=== PATIENT | female | born 1965 | race African-American/Black ===

== ENCOUNTER → 2017-08-19 | Outpatient (CLI) | payer OTHER ==
--- NOTE | 2017-08-20 09:05 | XCELERA REPORT ---
[address] [address] Lower Extremity Arterial Evaluation Name: LADONNA PEREZ Age: 52 yrs Gender: Female : 1965 Patient Status: Outpatient Patient Location: Study Date: 08/19/2017 12:57 PM Procedure: A color flow and duplex scan of the lower extremity arteries was performed bilaterally with velocity and waveform anaylsis. Ankle brachial indicies performed. Reason For Study: PVD Ordering Physician: CARLOZ VALENCIA Performed By: Kacy Ivy Measurements and Calculations Right Left CHHA PSV 231.3 111.3 cm/sec Prox PFA PSV -113.1 -119.4 cm/sec Prox SFA PSV -168.5 -118.8 cm/sec Mid SFA PSV -144.1 -113.1 cm/sec Dist SFA PSV -127.0 -124.5 cm/sec Prox Pop A PSV 48.4 55.2 cm/sec Dist ANTHONY PSV 44.6 47.5 cm/sec Dist PETROL T[employer]IVER PSV 23.2 48.3 cm/sec Valeriano Pedis PSV 38.0 33.2 cm/sec Right Side Arterial Evaluation Normal velocity and triphasic waveforms noted in the Common Femoral artery. Biphasic from the Popliteal to the infrageniculate vessels. 0-19% stenosis at the Popliteal artery. Ankle Brachial index is 1.04. Left Side Arterial Evaluation Normal velocity and triphasic waveforms noted from the Common Femoral artery to the Poplitea.. Biphasic in the infrageniculate vessels. 0-19% stenosis at the infrageniculate level. Ankle Brachial index is 1.04. Interpretation Summary Mild hemodynamically significant lesions in the bilateral lower extremities, on duplex imaging, at rest. : CARLOZ VALENCIA > Sancho Guillory
== END ==
LOC: SP 12:41
PROVIDERS: ATTEND Internal Medicine
DX: I73.9 Peripheral vascular disease, unspecified (principal)
CPT/HCPCS: 93925

== ENCOUNTER → 2018-04-24 | Outpatient (CLI) | payer OTHER ==
--- NOTE | 2018-04-24 18:25 | RADIOLOGY REPORT (SQ) ---
EXAM DESCRIPTION: MRI HEAD WITHOUT COMPLETED DATE/TIME: 04/24/2018 2:15 pm REASON FOR STUDY: UNSTEADINESS ON FEET R26.81 UNSTEADINESS ON FEET COMPARISON: None. TECHNIQUE: Multiplanar imaging includes non-contrasted T1, T2, FLAIR, and diffusion with ADC map seq uences. Detailed imaging in the posterior fossa. Images stored on PACS. LIMITATIONS: None. FINDINGS: ANATOMY: No anomalies. Normal vascular flow voids. Pituitary fossa normal. CSF SPACES: Normal in size and contour. No hemorrhage. CEREBRUM: Sulci and gyri normal in size and contour. Normal white matter signal on FLAIR imaging. No evidence of hemorrhage, mass, or extraaxial fluid collection. POSTERIOR FOSSA: No signal alteration. No hemorrhage. No edema, masses or mass effect. Internal romulo tory canals, cerebello-pontine angles, mastoids normal. DIFFUSION IMAGING: Negative for acute or sub-acute infarction. ORBITS: No masses. Globes normal. PARANASAL SINUSES: No fluid levels. Mucosa normal. OTHER: No other significant finding. IMPRESSION: NORMAL MRI OF THE BRAIN WITHOUT INTRAVENOUS GADOLINIUM CONTRAST. EVIDENCE OF ACUTE STROKE: NO. TECHNICAL DOCUMENTATION: JOB ID: [id number] [employer]- All Rights Reserved Reading location - IP/workstation name: [email or web address]
== END ==
LOC: RAD 13:35
PROVIDERS: ATTEND Internal Medicine
DX: R26.81 Unsteadiness on feet (principal)
CPT/HCPCS: 70551

== ENCOUNTER 2018-04-30 14:59 | Emergency (ER) | payer OTHER ==
[2018-04-30 15:17] VITALS: BP 110/65
[2018-04-30] MEDS ORDERED: AMOXICILLIN TRIHYDRATE 500 MG CAPSULE PO ONE (15:48)
--- NOTE | 2018-04-30 15:48 | ER Document Report ---
HPI - HPI Patient complains to provider of: sinus congestion Onset: Other - 2 months Onset/Duration: Persistent Quality of pain: Pressure Pain Level: 1 Context: Pt presents c/o sinus pressure and left ear pain. Patient states she frequently gets sinusitis and suspects the same today. Patient states since April 19 she has had daily episodes of dizziness off and on. Patient states she did see her primary doctor for this complaint and had an outpatient MRI which was normal. Patient was also given meclizine and states that this helped her vertigo symptoms. Patient does complain of continued congestion is worried she needs an antibiotic at this time. Associated Symptoms: Earache, Rhinnorhea, Sinus pain/drainage Exacerbated by: Denies Relieved by: Denies Similar symptoms previously: Yes Recently seen / treated by doctor: No - ROS ROS below otherwise negative: Yes Systems Reviewed and Negative: Yes All other systems reviewed and negative - CONSTITUTIONAL Constitutional: DENIES: Fever, Chills - EENT EENT: REPORTS: Ear Pain - Left ear, Nasal Drainage-Clear, Congestion. DENIES: Sore Throat, Eye problems - CARDIOVASCULAR Cardiovascular: DENIES: Chest pain - RESPIRATORY Respiratory: DENIES: Trouble Breathing, Coughing - GASTROINTESTINAL Gastrointestinal: DENIES: Abdominal Pain, Patient vomiting, Black / Bloody Stools - MUSCULOSKELETAL Musculoskeletal: DENIES: Back Pain, Neck Pain - DERM Skin Color: Normal Skin Problems: None Past Medical History - General Information source: Patient - Social History Smoking Status: Current Every Day Smoker Smoking Education Provided: Yes Frequency of alcohol use: None Drug Abuse: None Occupation: None Lives with: Family Family History: CAD, CVA, Hypertension Patient has suicidal ideation: No Patient has homicidal ideation: No - Past Medical History Cardiac Medical History: Reports: Hx Hypertension Pulmonary Medical History: Denies: Hx Asthma EENT Medical History: Reports: Other - Allergies Renal/ Medical History: Denies: Hx Peritoneal Dialysis Psychiatric Medical History: Reports: Hx Anxiety Surgical Hx: Negative - Immunizations Hx Diphtheria, Pertussis, Tetanus Vaccination: No Vertical Provider Document - CONSTITUTIONAL Agree With Documented VS: Yes Exam Limitations: No Limitations General Appearance: WD/WN, No Apparent Distress - INFECTION CONTROL TRAVEL OUTSIDE OF THE [place] IN LAST 30 DAYS: No - HEENT HEENT: Atraumatic, Normocephalic, PERRLA Notes: Patient with left serous effusion, bilateral maxillary sinus tenderness, no facial swelling. Nasal congestion with clear rhinorrhea - NECK Neck: Normal Inspection, Supple. negative: Lymphadenopathy-Left, Lymphadenopathy-Right - RESPIRATORY Respiratory: Breath Sounds Normal, No Respiratory Distress - CARDIOVASCULAR Cardiovascular: Regular Rate, Regular Rhythm, No Murmur - BACK Back: Normal Inspection - MUSCULOSKELETAL/EXTREMETIES Musculoskeletal/Extremeties: JOANNA QUEVEDO - NEURO Level of Consciousness: Awake, Alert, Appropriate Motor/Sensory: No Motor Deficit, No Sensory Deficit Notes: No focal neurologic deficit, normal gait - DERM Integumentary: Warm, Dry, No Rash Course - Re-evaluation Re-evalutation: 04/30/18 15:[address] Mast regarding patient presentation and diagnostic evaluation. Agrees with plan of care at this time and advises outpatient follow -up with ear nose and throat for further evaluation. - Vital Signs Vital signs: Temp Pulse Resp BP Pulse Ox 98.1 F 83 16 110/65 99 04/30/18 15:16 04/30/18 15:16 04/30/18 15:16 04/30/18 15:16 04/30/18 15:16 - Diagnostic Test Radiology reviewed: Reports reviewed - Reviewed MRI report from 04/24/2018 Discharge - Discharge Clinical Impression: Sinusitis Qualifiers: Sinusitis location: unspecified location Chronicity: unspecified Qualified Code (s): J32.9 - Chronic sinusitis, unspecified Condition: Stable Disposition: HOME, SELF-CARE Instructions: Amoxicillin ([facility]), Nasal Corticosteroid Inhaler ([facility]), Sinusitis ([facility]) Additional Instructions: Return immediately for any new or worsening symptoms Followup with your primary care provider, call tomorrow to make a followup appointment Resume taking her Amie to help with your symptoms Follow-up with ear nose and throat doctor for further evaluation Prescriptions: Amoxicillin 500 mg PO TID #30 tablet Fluticasone Propionate [Flonase Nasal [place] 50 Mcg/[place] 16 gm] 2 spray NASL DAILY #1 bottle Forms: Smoking Cessation Education Referrals: CARLOZ VALENCIA MD [Primary Care Provider] - 05/03/18
== END 2018-04-30 15:56 | disposition home or self-care (01) ==
LOC: ER 14:59
DX: J32.9 Chronic sinusitis, unspecified (principal); R09.81 Nasal congestion; H92.02 Otalgia, left ear; R42 Dizziness and giddiness; J34.89 Other specified disorders of nose and nasal sinuses; F17.200 Nicotine dependence, unspecified, uncomplicated; I10 Essential (primary) hypertension
CPT/HCPCS: 99282